=== PATIENT | female | born 1965 | race Caucasian/White ===

== ENCOUNTER → 2017-08-16 | Outpatient (CLI) | payer BC ==
[2017-08-16 11:21] LABS: ALBUMIN 4.9 gm/dL (3.5-5.0); BILIRUBIN,TOTAL 1.1 mg/dL (0.0-1.0); CALCIUM 10.1 mg/dL (8.4-10.2); CREATININE, serum 0.76 mg/dL (0.52-1.25); POTASSIUM 4.4 mmol/L (3.4-5.0); TOTAL PROTEIN 7.9 gm/dL (6.4-8.2)
[2017-08-16 11:52] LABS: THYROID STIMULATING HORMONE 2.78 uIU/mL (0.465-4.680)
== END ==
LOC: COL.LAB 10:42
PROVIDERS: Family Medicine
DX: Z13.220 Encounter for screening for lipoid disorders (principal); Z13.228 Encounter for screening for other metabolic disorders; Z13.29 Encounter for screening for other suspected endocrine disorder; M25.561 Pain in right knee; G89.29 Other chronic pain

== ENCOUNTER 2017-09-09 08:29 | Emergency (ER) | payer BC ==
[~2017-09-09] VITALS: Ht 172.7 cm; Wt 70.8 kg
[2017-09-09 08:32] VITALS: BP 116/67; TEMP 97.8
[2017-09-09] MEDS ORDERED: PAXIL 20MG20 MG PO (08:35)
[2017-09-09] MEDS ORDERED: OTEZLA PO (08:35)
[2017-09-09 09:18] LABS: BASO % 0.3 % (0.0-2.0); EOS # 0.1 (0.0-0.7); EOS % 0.8 % (0-4.0); GRAN # 10.9 (1.4-6.5); GRAN % 82.1 % (42.2-75.2); HEMATOCRIT 39.8 % (37.0-47.0); HEMOGLOBIN 13.1 g/dl (12.5-16.0); LYMPH # 1.7 (1.2-3.4); LYMPH % 12.7 % (20.0-51.0); MEAN CELL VOLUME 92 fl (80.0-100.0); MEAN CORPUSCULAR HEMOGLOBIN 30 pg (27.0-31.0); MEAN CORPUSCULAR HGB CONC 33 g/dl (33.0-37.0); MEAN PLATELET VOLUME 10.4 fl (7.4-10.4); MONO # 0.5 (0.1-0.6); MONO % 3.8 % (1.7-9.3); PLATELET COUNT 211 K/mm3 (130-400); RED BLOOD COUNT 4.34 M/mm3 (4.10-5.30); REDCELL DISTRIBUTION WIDTH-CV 12.5 % (11.5-14.5)
[2017-09-09 09:34] LABS: ALBUMIN 3.8 gm/dL (3.5-5.0); BILIRUBIN,TOTAL 0.9 mg/dL (0.0-1.0); C-REACTIVE PROTEIN 0.6 mg/dL (0.0-0.9); CALCIUM 8.6 mg/dL (8.4-10.2); CREATININE, serum 0.7 mg/dL (0.52-1.25); POTASSIUM 4.3 mmol/L (3.4-5.0); TOTAL PROTEIN 6.5 gm/dL (6.4-8.2)
[2017-09-09 09:43] LABS: COLLECTION METHOD CLEAN CATCH
[2017-09-09 09:48] LABS: PH 7 (5-8); URINE APPEARANCE Hazy; URINE BACTERIA Rare /hpf; URINE BILIRUBIN Negative (NEGATIVE); URINE BLOOD Negative (NEGATIVE); URINE COLOR Yellow; URINE GLUCOSE Negative (NEGATIVE); URINE KETONE Negative (NEGATIVE); URINE LEUKOCYTE ESTERASE Negative (NEGATIVE); URINE NITRATE Negative (NEGATIVE); URINE PROTEIN(semi-quant) Negative (NEGATIVE); URINE RBC None Seen /hpf; URINE UROBILINOGEN Negative (NEGATIVE)
[2017-09-09] MEDS ORDERED: FLAGYL500 MG PO (10:17)
[2017-09-09] MEDS ORDERED: NORCO 325 MG-51 TAB PO (10:17)
[2017-09-09] MEDS ORDERED: CIPRO 500MG TA500 MG PO (10:17)
[2017-09-09 10:28] VITALS: PULSE 92
== END 2017-09-09 10:28 | disposition home or self-care (01) ==
LOC: COL.ER 08:29
PROVIDERS: Nurse Practitioner
DX: K57.92 Diverticulitis of intestine, part unspecified, without perforation or abscess without bleeding (principal); F32.9 Major depressive disorder, single episode, unspecified; Z90.49 Acquired absence of other specified parts of digestive tract; Z90.710 Acquired absence of both cervix and uterus; Z88.2 Allergy status to sulfonamides
CPT/HCPCS: J2270; J2405; J7030; Q9967

== ENCOUNTER → 2017-09-11 | Outpatient (CLI) | payer BC ==
[~2017-09-11] MED LIST: CIPRO 500MG TA500 MG PO; FLAGYL500 MG PO; NORCO 325 MG-51 TAB PO; OTEZLA PO; PAXIL 20MG20 MG PO
== END ==
LOC: MC.RAD 11:10
DX: Z12.31 Encounter for screening mammogram for malignant neoplasm of breast (principal); R92.0 Mammographic microcalcification found on diagnostic imaging of breast

== ENCOUNTER → 2017-09-20 | Outpatient (CLI) | payer BC | LOC: MC.RAD 12:52 | DX: R92.8 Other abnormal and inconclusive findings on diagnostic imaging of breast (principal) ==

== ENCOUNTER → 2017-09-27 | Outpatient (CLI) | payer BC | LOC: MC.RAD 08:49 | DX: R92.0 Mammographic microcalcification found on diagnostic imaging of breast (principal) ==

== ENCOUNTER 2017-10-13 06:50 | Day surgery (SDC) | payer BC ==
[2017-10-13] VITALS (10 sets, daily range): BP systolic 96–126; BP diastolic 51–72; PULSE 66–89; TEMP 97.7–98.6
[~2017-10-13] VITALS: Ht 172.7 cm; Wt 72.1 kg
[2017-10-13] MEDS ORDERED: NORCO 325 MG-51 TAB PO (16:53)
[2017-10-13] MEDS ORDERED: COLACE 100100 MG/CAP PO (16:53)
[2017-10-13] MEDS ORDERED: MOTRIN 600600 MG/TAB PO (16:54)
[2017-10-13] MEDS ORDERED: ZOFRAN 4MG T4 MG/TAB PO (16:55)
[2017-10-14 01:36] VITALS: BP 90/48; PULSE 58; TEMP 98.8
[2017-10-14 05:27] VITALS: BP 99/58; PULSE 56; TEMP 98.6
[2017-10-14 09:36] VITALS: BP 111/49; PULSE 92; TEMP 98.7
== END 2017-10-14 11:20 | disposition home or self-care (01) ==
LOC: SDCO 06:50 → SURG 19:15 → SDCO 10-14 11:20
DX: D05.91 Unspecified type of carcinoma in situ of right breast (principal); L76.82 Other postprocedural complications of skin and subcutaneous tissue; F41.9 Anxiety disorder, unspecified; F32.9 Major depressive disorder, single episode, unspecified; K58.9 Irritable bowel syndrome, unspecified; I34.1 Nonrheumatic mitral (valve) prolapse; Z17.0 Estrogen receptor positive status [ER+]; F17.210 Nicotine dependence, cigarettes, uncomplicated; Z88.2 Allergy status to sulfonamides; Z88.1 Allergy status to other antibiotic agents; Z91.038 Other insect allergy status; M19.90 Unspecified osteoarthritis, unspecified site
CPT/HCPCS: OP; A9541; J0690; J1100; J1885; J2175; J2405; J2550; J2704; J3010; J7120

== ENCOUNTER → 2018-03-09 | Outpatient (CLI) | payer BC ==
[~2018-03-09] MED LIST changes: +COLACE 100100 MG/CAP PO; +MOTRIN 600600 MG/TAB PO; +ZOFRAN 4MG T4 MG/TAB PO
== END ==
LOC: COL.RAD 09:24
DX: C50.919 Malignant neoplasm of unspecified site of unspecified female breast (principal); E07.89 Other specified disorders of thyroid

== ENCOUNTER → 2018-09-24 | Outpatient (CLI) | payer BC | LOC: MC.RAD 09-13 13:00 | DX: Z12.31 Encounter for screening mammogram for malignant neoplasm of breast (principal); C50.411 Malignant neoplasm of upper-outer quadrant of right female breast; Z98.890 Other specified postprocedural states | CPT/HCPCS: G0279 ==

== ENCOUNTER → 2019-11-19 | Outpatient (CLI) | payer BC | LOC: MC.RAD 09-30 15:00 | DX: Z12.31 Encounter for screening mammogram for malignant neoplasm of breast (principal); Z85.3 Personal history of malignant neoplasm of breast; Z98.890 Other specified postprocedural states ==

== ENCOUNTER 2020-05-11 20:34 | Emergency (ER) | payer BC ==
[~2020-05-11] VITALS: Ht 172.7 cm; Wt 72.7 kg
[2020-05-11 20:57] VITALS: BP 131/71; TEMP 99
[2020-05-11 22:17] LABS: BASO # 0.1 (0.0-0.2); BASO % 0.6 % (0.0-2.0); EOS # 0.2 (0.0-0.7); EOS % 1.5 % (0-4.0); GRAN # 8.3 (1.4-6.5); GRAN % 73.2 % (42.2-75.2); HEMATOCRIT 41.9 % (37.0-47.0); HEMOGLOBIN 14.1 g/dl (12.5-16.0); MEAN CELL VOLUME 90 fl (80.0-100.0); MEAN CORPUSCULAR HEMOGLOBIN 30 pg (27.0-31.0); MEAN CORPUSCULAR HGB CONC 34 g/dl (33.0-37.0); MEAN PLATELET VOLUME 10.7 fl (7.4-10.4); MONO # 0.7 (0.1-0.6); MONO % 6.4 % (1.7-9.3); PLATELET COUNT 266 K/mm3 (130-400); RED BLOOD COUNT 4.67 M/mm3 (4.10-5.30); REDCELL DISTRIBUTION WIDTH-CV 12.3 % (11.5-14.5)
[2020-05-11 22:21] LABS: ALBUMIN 4.8 gm/dL (3.5-5.0); BILIRUBIN,TOTAL 1.3 mg/dL (0.0-1.0); C-REACTIVE PROTEIN 2.1 mg/dL (0.0-0.9); CREATININE, serum 0.84 (0.52-1.25); POTASSIUM 3.9 mmol/L (3.4-5.0); TOTAL PROTEIN 8.1 gm/dL (6.4-8.2)
[2020-05-11 23:03] LABS: COLLECTION METHOD CLEAN CATCH
[2020-05-11 23:09] LABS: PH 8 (5-8); SQUAMOUS EPITHELIAL 0-2 /hpf; URINE APPEARANCE Clear; URINE BACTERIA None Seen /hpf; URINE BILIRUBIN Negative (NEGATIVE); URINE BLOOD Negative (NEGATIVE); URINE COLOR Straw; URINE GLUCOSE Negative (NEGATIVE); URINE KETONE Trace (NEGATIVE); URINE LEUKOCYTE ESTERASE Negative (NEGATIVE); URINE NITRATE Negative (NEGATIVE); URINE PROTEIN(semi-quant) Negative (NEGATIVE); URINE RBC 0-2 /hpf; URINE UROBILINOGEN Negative (NEGATIVE)
[2020-05-12] MEDS ORDERED: NORCO 325 MG-7.1 TAB PO (00:02)
[2020-05-12] MEDS ORDERED: ZOFRAN ODT4 MG PO (00:02)
[2020-05-12] MEDS ORDERED: LEVAQUIN 750MG750 M1 PO (00:02)
[2020-05-12] MEDS ORDERED: FLAGYL500 MG PO (00:02)
[2020-05-12 00:38] VITALS: PULSE 99
== END 2020-05-12 00:38 | disposition home or self-care (01) ==
LOC: COL.ER 20:34
PROVIDERS: Emergency Medicine
DX: K57.92 Diverticulitis of intestine, part unspecified, without perforation or abscess without bleeding (principal); Z90.49 Acquired absence of other specified parts of digestive tract; Z90.710 Acquired absence of both cervix and uterus; Z90.12 Acquired absence of left breast and nipple; Z90.711 Acquired absence of uterus with remaining cervical stump
CPT/HCPCS: J1170; J2405; J7030; Q9967